=== PATIENT | female | born 1960 | race Caucasian/White ===

== ENCOUNTER → 2021-02-28 | Outpatient (CLI) | payer MEDICAID ==
[2021-02-28 09:27] LABS: BASOPHILS % (AUTO) 1 % (0-10); EOSINOPHILS # (AUTO) 0.1 10^3/uL (0.0-0.3); EOSINOPHILS % (AUTO) 1 % (0-10); HEMATOCRIT 45 % (35-52); HEMOGLOBIN 14.5 g/dL (11.5-16.0); LYMPHOCYTES # (AUTO) 1.7 10^3/uL (1.0-4.0); LYMPHOCYTES % (AUTO) 28 % (12-44); MEAN CORPUSCULAR HEMOGLOBIN 32 pg (25-34); MEAN CORPUSCULAR HGB CONC 33 g/dL (32-36); MEAN CORPUSCULAR VOLUME 98 fL (80-99); MEAN PLATELET VOLUME 8.7 fL (9.0-12.2); MONOCYTES # (AUTO) 0.5 10^3/uL (0.0-1.0); MONOCYTES % (AUTO) 8 % (0-12); NEUTROPHILS # (AUTO) 3.7 10^3/uL (1.8-7.8); NEUTROPHILS % (AUTO) 62 % (42-75); PLATELET COUNT 276 10^3/uL (130-400)
[2021-02-28 10:01] LABS: CREATININE SERUM 0.79 MG/DL (0.60-1.30); POTASSIUM 3.9 MMOL/L (3.6-5.0)
--- NOTE | 2021-02-28 10:10 | Diagnostic Imaging Report ---
INDICATION: COPD. COMPARISON: 06/16/2015. FINDINGS: Frontal and lateral views of the chest demonstrate normal heart size and pulmonary vascularity. The lungs are clear. There are no signs of infiltrate, pleural effusion, or pneumothorax. The visualized osseous structures show no acute abnormalities. IMPRESSION: No acute process. No signs of infiltrate, effusion, or pneumothorax. Dictated by: Dictated on workstation # [id number]
== END ==
LOC: RAD 08:54
PROVIDERS: ATTEND Nurse Practitioner Family
DX: J44.9 Chronic obstructive pulmonary disease, unspecified (principal)
CPT/HCPCS: 36415; 71046; 80048; 85025

== ENCOUNTER → 2021-03-07 | Outpatient (CLI) | payer MEDICAID ==
[~2021-03-07] MED LIST: RT-ALBUTEROL SULF 2.5 MG/3 ML PRE-MIX VIAL INH ONE
== END ==
LOC: RT 13:00
PROVIDERS: ATTEND Nurse Practitioner Family
DX: J44.9 Chronic obstructive pulmonary disease, unspecified (principal)
CPT/HCPCS: 94060; 94726; 94729